=== PATIENT | female | born 1955 | race Caucasian/White ===

== ENCOUNTER 2019-04-30 11:50 | Emergency (ER) | payer SELFPAY ==
[~2019-04-30] VITALS: Ht 172.7 cm; Wt 59.0 kg
--- OUTSIDE RECORDS SUMMARY | 2019-04-30 11:53 | XMS REPORT | Clinical Summary ---
Author Author [facility] Organization [facility] Address Unknown Phone Unavailable Care Team Providers Care Portal Developer Name Role Phone Marguerite islas MD PCP Allergies Comments Active Allergy Reactions Severity Noted Date Shellfish Derived 03/12/2019 Medications End Date Status Medication Sig Dispensed Refills Start Date Active albuterol (PROAIR Inhale 2 0 HFA,PROVENTIL puffs 2 (two) HFA,VENTOLIN HFA) 90 times a day. mcg/actuation inhalerIndications: bronchospasm prevention Active cetirizine (ZyrTEC) 10 MG Take 10 mg by 0 tabletIndications: mouth as allergic rhinitis needed for allergies. Active clonAZEPAM (KlonoPIN) 1 Take 1 mg by 0 MG tabletIndications: mouth 2 (two) anxiety times a day as needed Indications: anxiety. Active DULoxetine (CYMBALTA) 60 Take 60 mg by 0 MG capsuleIndications: mouth daily. Anxiety with Depression Active gabapentin (NEURONTIN) Take 600 mg 0 600 mg tabletIndications: by mouth 3 Neuropathic Pain (three) times a day Indications: Neuropathic Pain. Active hyoscyamine (LEVSIN) Take 0.125 mg 0 0.125 mg SL by mouth tabletIndications: every 6 (six) irritable bowel syndrome hours as needed for cramping (3 to 4 times daily). Active metoprolol tartrate Take 25 mg by 0 (LOPRESSOR) 25 mg mouth 2 (two) tabletIndications: times a day. hypertension Active pantoprazole (PROTONIX) Take 40 mg by 0 40 MG EC mouth daily. tabletIndications: gastroesophageal reflux disease Active prazosin (MINIPRESS) 2 MG Take 4 mg by 0 capsuleIndications: mouth Nightmares nightly. Active traZODone (DESYREL) 100 Take 100 mg 0 MG tabletIndications: by mouth insomnia associated with nightly. depression Active fluticasone Inhale 1 puff 0 propion-salmeterol 2 (two) times (ADVAIR) 250-50 mcg/dose a day. DISKUS Active HYDROcodone-acetaminophen Take 1 tablet 0 (NORCO) 10-325 mg per by mouth tablet every 4 (four) hours as needed for moderate pain. 03/12/2019 Discontinued buprenorphine-naloxone Place 1 Film 0 (SUBOXONE) 8-2 mg under the filmIndications: opioid tongue 3 dependence (three) times a day. 03/12/2019 Discontinued mirtazapine (REMERON Take 30 mg by 0 KEKE-TAB) 30 MG mouth disintegrating nightly. tabletIndications: major depressive disorder 03/12/2019 Discontinued rivaroxaban (XARELTO) 20 Take 20 mg by 0 mg tabletIndications: mouth anticoagulation nightly. 04/14/2019 aspirin 325 MG tablet Take 1 tablet 30 tablet 0 (325 mg 9 total) by mouth daily for 30 days. 04/13/2019 atorvastatin (LIPITOR) 10 Take 1 tablet 30 tablet 0 MG tablet (10 mg total) 9 by mouth nightly for 30 days. Active Problems Problem Noted Date Chest pain with high risk of acute coronary syndrome 03/12/2019 Suicidal ideation 04/24/2018 MDD (major depressive disorder), recurrent episode, moderate 04/24/2018 Single current episode of major depressive disorder 04/24/2018 Acute angina 04/22/2018 Encounters Care Team Description Date Type Specialty Arely Carnes MD Cv left heart cath [70723 (CPT)] 03/14/2019 Surgery Procedural Cardiology Jack Zaman MD Korimilli, Vijay, MD Chest pain with high risk of acute coronary syndrome (Primary Dx); Tachycardia; Accelerated hypertension; Left lower quadrant pain 03/12/2019 Emergency General Internal Medicine - 03/14/2019 03/12/2019 Travel Aaron Ovalles, PhD 05/12/2018 Telephone Home Health Services Aaron Ovalles, PhD 05/10/2018 Telephone Home Health Services after 04/29/2018 Family History Medical History Relation Name Comments Bipolar disorder Daughter Bipolar disorder Mother Relation Name Status Comments Daughter Mother Social History Date Tobacco Use Types Packs/Day Years Used Never Smoker Smokeless Tobacco: Never Used Drinks/Week oz/Week Comments Alcohol Use No Sex Assigned at Date Recorded Not on file Industry Job Start Date Occupation Not on file Not on file Not on file Travel End Travel History Travel Start No recent travel history available. Last Filed Vital Signs Reading Time Taken Comments Vital Sign 156/86 03/14/2019 7:23 PM CDT Blood Pressure 104 03/14/2019 7:23 PM CDT Pulse 35.9 C (96.6 F) 03/14/2019 7:23 PM CDT Temperature 18 03/14/2019 7:23 PM CDT Respiratory Rate 93% 03/14/2019 7:23 PM CDT Oxygen Saturation - - Inhaled Oxygen Concentration - - Weight 172.7 cm (5' 8") 03/12/2019 5:32 PM CDT Height - - Body Mass Index Plan of Treatment Health Maintenance Due Date Last Done Comments CERVICAL CANCER SCREENING 1977 BREAST CANCER SCREENING 2006 COLONOSCOPY SCREENING 2006 SHINGLES VACCINES (#1) 2006 INFLUENZA VACCINE 03/02/2019 Procedures Comments Procedure Name Priority Date/Time Associated Diagnosis CV LEFT HEART CATH Routine 03/14/2019 1:32 PM CDT ECG 12-LEAD Routine 03/14/2019 11:25 AM CDT PROTHROMBIN TIME WITH INR Routine 03/14/2019 4:10 AM CDT TYPE AND SCREEN Routine 03/14/2019 4:10 AM CDT ESTIMATED GFR Routine 03/14/2019 4:10 AM CDT BASIC METABOLIC PANEL Routine 03/14/2019 4:10 AM CDT CBC HEMOGRAM Routine 03/14/2019 4:10 AM CDT ECHOCARDIOGRAM 2D Routine 03/13/2019 COMPLETE W MMODE SPECTRAL 12:13 PM CDT COLOR DOPPLER (02165) NM MYOCARDIAL PERFUSION Routine 03/13/2019 REST STRESS 1 DAY 11:41 AM CDT CV STRESS TEST NUCLEAR Routine 03/13/2019 CARDIO 11:41 AM CDT ECG 12-LEAD STAT 03/13/2019 4:28 AM CDT ESTIMATED GFR Timed 03/13/2019 3:00 AM CDT THYROID STIMULATING Timed 03/13/2019 HORMONE 3:00 AM CDT HEMOGLOBIN A1C Timed 03/13/2019 3:00 AM CDT BASIC METABOLIC PANEL Timed 03/13/2019 3:00 AM CDT HC COMPLETE BLD COUNT Timed 03/13/2019 W/AUTO DIFF 3:00 AM CDT TROPONIN Timed 03/13/2019 3:00 AM CDT ECG 12-LEAD Routine 03/13/2019 12:11 AM CDT TROPONIN Timed 03/12/2019 9:50 PM CDT GRAM STAIN STAT 03/12/2019 7:09 PM CDT URINE CULTURE STAT 03/12/2019 7:[address] ANGIOGRAM PE CHEST STAT 03/12/2019 6:[address] ABDOMEN PELVIS W STAT 03/12/2019 CONTRAST 6:57 PM CDT URINALYSIS SCREEN AND STAT 03/12/2019 MICROSCOPY, WITH REFLEX 6:55 PM CDT TO CULTURE XR CHEST 1 VW PORTABLE STAT 03/12/2019 5:48 PM CDT ESTIMATED GFR STAT 03/12/2019 5:40 PM CDT LIPASE LEVEL STAT 03/12/2019 5:40 PM CDT PARTIAL THROMBOPLASTIN STAT 03/12/2019 TIME (PTT) 5:40 PM CDT PROTHROMBIN TIME WITH INR STAT 03/12/2019 5:40 PM CDT B NATRIURETIC PEPTIDE STAT 03/12/2019 5:40 PM CDT TROPONIN STAT 03/12/2019 5:40 PM CDT CREATINE KINASE, TOTAL STAT 03/12/2019 (CPK) 5:40 PM CDT COMPREHENSIVE METABOLIC STAT 03/12/2019 PANEL 5:40 PM CDT HC COMPLETE BLD COUNT STAT 03/12/2019 W/AUTO DIFF 5:40 PM CDT ECG ED PRELIMINARY Routine 03/12/2019 INTERPRETATION 5:32 PM CDT ECG 12-LEAD STAT 03/12/2019 5:23 PM CDT after 04/29/2018 Results * 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 [facility] 2.90 % stenosis ofLeft anterior descending coronary artery 5.End-diastolic pressure elevated at 12mmHg consistent with underlying diastolic dysfunction, most likely secondary to underlying hypertensive heart disease. RECOMMENDATIONS: Medical therapy Continue with cardiac risk factor modification. Narrative Performed At [employer] [facility] Rubia Melendez [id number] 03/14/19 PROCEDURE: Left heart catheterization, selective coronary angiography and ventriculography INDICATION FOR PROCEDURE: Angina PROCEDURE DETAILS : The standard technique was employed. Sterile conditions were maintained throughout the procedure. The right groin was prepared and draped in the usual sterile fashion.The remained patient hemodynamically remained stable.The seldinger technique was used to access right common femoral artery with no complications. Conscious sedation was performed with Midazolam andFentanyl.Subcutaneous lidocaine was used for local anesthesia. Selective cine coronary arteriography was then performed in the standard left and right oblique projections using manual injection of contrast. A 5-Lithuanian system was used throughout the procedure. A FL4 catheter was placed in the ostium of the left main for angiography of the left main, left anterior descending artery, circumflex, andobtuse marginal coronary arteries. FR4 catheter was placed in the ostium of the right coronary artery for angiography of the right coronary artery. A 5-Lithuanian pigtail catheter was passed across the aortic valve and placed the left ventricular cavity for assessment of left ventricular systolic and diastolic pressure as well as left ventriculography. Left ventriculogram was performed in right anterior oblique projection. Left ventricular and aortic pressures were then recorded during pullback of the catheter from the left ventricle into the ascending aorta. FINDINGS : Left main is normal. 90 % stenosis ofLeft anterior descending coronary artery l. The circumflex and obtuse marginal coronary arteries had some mild luminal irregularities. The right coronary artery is dominant, and had some mild luminal irregularities. Left ventriculogram demonstrated normal systolic function, normal wall motion. Left ventricular end-diastolic pressure was measured at 12 mmHg. Performing Organization Address [facility] [[email or web address] Phone Number [employer] [address] [place] [address] * ECG 12 lead (03/14/2019 11:25 AM CDT) Only the most recent of 4 results within the time period is included. Ventricular 62 [facility] M[facility] rate Atrial rate 62 [facility] M[facility] SD interval 166 [facility] QRSD interval 96 [facility] QT interval 450 [facility] QTC interval 456 [facility] P axis 1 44 [facility] QRS axis 1 58 [facility] T wave axis 34 [facility] EKG impression Normal sinus rhythm-Normal [facility] ECG-In automated comparison with ECG of 13-MAR-2019 04:28,-No significant change was found- Specimen Narrative Performed At Performing Organization Address [facility] Phone Number [employer] [address] [place] [address] * Estimated GFR (03/14/2019 4:10 AM CDT) Only the most recent of 3 results within the time period is included. Estimated GFR 69 mL/min/1.73 m2 [facility] Comment: [facility] rpretation G1 >=90 Normal or high G2 60-89Mildly decreased [id number] Mildly to moderately decreased [id number] Moderately to severely decreased G4 15-29Severely decreased G5 <15Kidney failure The eGFR was calculated using the Chronic Kidney Disease Epidemiology Collaboration (CKD-EPI) equation. Interpretation is based on recommendations of the National Kidney Foundation-Kidney Disease Outcomes Quality Initiative (NKF-KDOQI) published in 2014. Specimen Plasma specimen Performing Organization Address City/[facility]/Zipcode Phone Number [facility] DEPARTMENT OF [address] [place] [address] PATHOLOGY AND [facility] MEDICINE [address] * Prothrombin time with INR (03/14/2019 4:10 AM CDT) Only the most recent of 2 results within the time period is included. Prothrombin 13.4 11.5 - 14.5 sec [facility] INR 1.1 [facility] Comment: [facility] International Normalized [facility] Ratio (INR) is a therapeutic monitoring tool for patients who are stable on oral anticoagulant therapy. An INR of 2.0-3.0 is suggested for deep vein thrombosis/pulmonary embolism. Specimen Blood Performing Organization Address [facility] [email or web address] Phone Number [facility] DEPARTMENT OF [address] [place] [address] PATHOLOGY AND [facility] MEDICINE [address] * CBC hemogram (03/14/2019 4:10 AM CDT) WBC 6.8 4.5 - 11.0 k/uL [facility] RBC 4.19 (L) 4.20 - 5.50 m/uL [facility] HGB 11.8 (L) 12.0 - 16.0 g/dL [facility] HCT 36.6 (L) 37.0 - 47.0 % [facility] MCV 87.4 82.0 - 100.[address] [facility] MCH 28.2 27.0 - 34.[address] [facility] MCHC 32.2 31.0 - 37.0 g/dL [facility] RDW - SD 42.5 37.0 - 55.[address] [facility] MPV 8.9 6.9 - 11.[address] [facility] Platelet count 242 150 - 400 K/uL [facility] Nucleated RBC 0.00 /[address] [facility] Specimen Blood Performing Organization Address City/State/Zipcode Phone Number [facility] DEPARTMENT [id number] [place] [address] PATHOLOGY AND GENOMIC MEDICINE [address] * Type and screen (03/14/2019 4:10 AM CDT) ABO grouping A [facility] Rh type POS [facility] Antibody screen NEG [facility] (gel) [facility] Specimen Blood Performing Organization Address City/[facility]/Zipcode Phone Number [facility] [place] [id number] [place] [address] PATHOLOGY AND GENOMIC MEDICINE [address] * Basic metabolic panel (03/14/2019 4:10 AM CDT) Only the most recent of 2 results within the time period is included. Sodium 135 135 - 148 mEq/L [facility] Potassium 3.6 3.5 - 5.0 mEq/L [facility] Chloride 102 98 - 112 mEq/L [facility] CO2 23 (L) 24 - 31 mEq/L [facility] Anion gap 10@ANIO 7 - 15 mEq/L [facility] BUN 9 8 - 23 mg/dL [facility] Creatinine 0.89 0.50 - 0.90 mg/dL [facility] Glucose 93 65 - 99 mg/dL [facility] Calcium 9.0 8.8 - 10.2 mg/dL [facility] Specimen Plasma specimen Performing Organization Address City/State/Zipcode Phone Number [facility] [place] [id number] [place] [address] PATHOLOGY AND GENOMIC MEDICINE [address] * Echocardiogram complete w contrast and 3D if needed (03/13/2019 12:13 PM CDT) AoV Area, Vmax 2.70 cm2 [facility] AoV Area, VTI 3.39 cm2 [facility] AoV Mean PG 3.00 mmHg [facility] AoV Peak PG 5.95 mmHg [facility] AoV Vmax 1.22 m/s [facility] AoV VTI 0.25 m [facility] IVS,d 0.94 cm [facility] IVS/LVPW,2D 1.00 [facility] Left Atrium 4.60 cm [facility] Dimension Anterior LV,d 4.96 cm [facility] LV EF,2D 84.23 % [facility] LV,s 2.68 cm [facility] LVOT area 3.80 cm2 [facility] LVOT Diam,S 2.20 cm [facility] LVOT Vmax 0.87 m/s [facility] LVOT VTI 0.22 m [facility] LVPWD,d 0.94 cm [facility] PV Pk Grad 3.49 mmHg [facility] PV VMAX 0.93 m/s [facility] RVOT Vmax 0.77 m/s [facility] RVSP (TR) 34.67 mmHg [facility] TR Vpeak 2.64 mm/s [facility] MV E A ratio 0.67 [facility] RA pressure 10.00 mmHg [facility] TR pk grad 24.67 mmHg [facility] MR Vmax 4.16 m/s [facility] MR peak grad 59.60 mmHg [facility] E wave 180.00 msec [facility] decelartion time MV Peak A Renato 1.21 m/s [facility] MV valve area p 4.21 cm2 [facility] 1/2 method MV Peak E Renato 0.82 m/s [facility] MV stenosis 52.20 ms [facility] pressure 1/2 time AV LVOT peak 2.99 mmHg [facility] gradient RVSP 34.67 mmHg [facility] Ao Root,d,2D 2.80 cm [facility] LV SYS VOL 26.52 ml [facility] LV SANDERS VOL 116.06 ml [facility] LV SV Teich 2D 89.53 ml [facility] LV Vol s Teich 26.52 ml [facility] PSAX RVOT pk grad 2.39 mmHg [facility] AoV Vmn 0.86 [facility] LV FS Teich 2D 45.97 [facility] MV AE ratio 1.48 [facility] LV FS Cube 2D 45.97 [facility] LVOT Vmn 0.64 [facility] PA Sanders Press 13.00 [facility] SD End Sanders 3.00 [facility] Grad SD End Diat Renato 0.87 [facility] Aov area Vmn 2.83 cm2 [facility] LVOT mean grad 2.00 mmHg [facility] MAX Pred HR 157.02 [facility] 85 of MPHR 133.47 [facility] Ao d LA s ratio 0.61 [facility] Calc MPHR 157.02 bpm [facility] LV SV Cube 2D 102.78 ml [facility] LV vol d cube 122.02 ml [facility] 2D LV vol s cube 19.25 ml [facility] 2D MV Decel slope 4.54 m/s2 [facility] Pred Exer Dur 7.58 [facility] R1 Pred METS R1 6.51 [facility] Velocity Ratio 0.71 m/s [facility] (V1/V2) EF 77.15 % [facility] E/A ratio 0.68 [facility] Specimen Narrative Performed At [facility] The left ventricular chamber size is normal. Left ventricular systolic function is normal. Left Ventricular ejection fraction is 60 - 65%. Normal left ventricular wall thickness and regional wall motion Right Atrium: The right atrium is normal. IVC/SVC: Mitral Valve: Mild mitral valve regurgitation. Tricuspid Valve: Mild tricuspid valve regurgitation Performing Organization Address [facility] Phone Number [employer] [address] [place] [address] * Cv stress test (03/13/2019 11:41 AM CDT) Resting HR 70 H MUSE Resting BP 163 [facility] MUSE Peak MET 1.0 H MUSE Achieved Protocol Name Regmosesoson [facility] MUSE Time in 00:01:00 [facility] MUSE Exercise Phase Max Systolic BP 165 [facility] MUSE Max Diastolic 95 [facility] MUSE BP Max Heart Rate 100 H MUSE Max Predicted 158 [facility] MUSE Heart Rate Target HR (220 - Age)*85% [facility] MUSE Formula Test Indication Abnormal ECG [facility] MUSE Stress Test ---Waveform interpreted in [facility] MUSE Impression report associated with image study. No interpretation is provided as part of this Stress ECG report.---Electronically Signed By Arely Carnes MD ([id number]), assistant film editor Kamaljit Noble ([id number]) on 03/13/2019 10:51:38 AM Target HR 158.00 bpm [facility] MUSE Specimen Narrative Performed At Performing Organization Address [facility] Phone Number [employer] [address] [place] [address] * Nm myocardial perfusion (03/13/2019 11:41 AM CDT) Target HR 158.00 bpm [facility] Resting HR 70 BPM [facility] Resting BP 163/90 mmHg [facility] Post Peak HR 100 bpm [facility] Percent HR 63.29 % [facility] Post Peak BP 165/95 mmHg [facility] Specimen Narrative Performed At [facility] 1.Normal coronary perfusion. 2.Normal left ventricular systolic function with normal left ventricular wall motion. 3.Left ventricular ejection fraction is over 70% based on gated stress images. 4.Chest pain associated with borderline ST/T changes associated with chest pain with Lexiscan stress. Performing Organization Address City/State/Zipcode Phone Number [employer] [address] [place] [address] * Troponin (03/13/2019 3:00 AM CDT) Only the most recent of 3 results within the time period is included. [facility] Troponin <0.006 0.000 - 0.040 ng/mL [facility] Comment: [facility] changed methodology effective: 12/06/2018 at 10:00 am The new method has a 99th percentile cutoff of 0.040 ng/mL Specimen Plasma specimen Performing Organization Address City/State/Zipcode Phone Number [facility] [place] [address] [place] [address] PATHOLOGY AND GENOMIC MEDICINE [address] * CBC with platelet and differential (03/13/2019 3:00 AM CDT) Only the most recent of 2 results within the time period is included. [facility] WBC 7.7 4.5 - 11.0 k/uL [facility] RBC 4.21 4.20 - 5.50 m/uL [facility] HGB 12.0 12.0 - 16.0 g/dL [facility] HCT 37.0 37.0 - 47.0 % [facility] MCV 87.9 82.0 - 100.[address] [facility] MCH 28.5 27.0 - 34.[address] [facility] MCHC 32.4 31.0 - 37.0 g/dL [facility] RDW - SD 42.8 37.0 - 55.[address] [facility] MPV 8.9 6.9 - 11.[address] [facility] Platelet count 252 150 - 400 K/uL [facility] Nucleated RBC 0.00 /[address] [facility] Neutrophils 66.6 39.0 - 69.0 % [facility] Lymphocytes 22.9 (L) 25.0 - 45.0 % [facility] Monocytes 7.7 0.0 - 10.0 % [facility] Eosinophils 1.6 0.0 - 5.0 % [facility] Basophils 0.8 0.0 - 1.0 % [facility] Immature 0.4 0.0 - 1.0 % [facility] granulocytes [facility] Specimen Blood Performing Organization Address City/State/[place] [address] PATHOLOGY AND GENOMIC MEDICINE [address] * Thyroid stimulating hormone (03/13/2019 3:00 AM CDT) TSH 0.61 0.27 - 4.20 uIU/mL [facility] Specimen Plasma specimen Performing Organization Address City/[facility] [email or web address] [address] PATHOLOGY AND GENOMIC MEDICINE [address] * Hemoglobin A1c (03/13/2019 3:00 AM CDT) Hemoglobin A1C 5.5 4.0 - 5.6 % [facility] Comment: [facility] HbA1c cutoffs for diagnosing [facility] diabetes: 4.0% - 5.6%=normal 5.7% - 6.4%=increased risk for diabetes (prediabetes) >=6.5%=diabetes Goals for glycemic control (ADA 2016) < 7.0%Target for non adults with diabetes. More or less stringent targets may be appropriate for individual patients. <7.5% Target for Children and adolescents with type 1 diabetes. Specimen Blood Performing Organization Address City/State/Zipcode Phone Number [facility] DEPARTMENT [address] [place] [address] PATHOLOGY AND GENOMIC MEDICINE [facility]Y [facility] [employer] [address] [place] [address] [facility] * Gram stain (03/12/2019 7:09 PM CDT) Gram stain No WBC's or organisms seen. [facility] result Comment: [facility] Specimen Information HOSPITAL Specimen Source: Urine Specimen Site: Clean catch Specimen Urine Performing Organization Address City/[facility]/Zipcode Phone Number [facility] DEPARTMENT OF [address] [place] [address] PATHOLOGY AND [facility] MEDICINE [facility] [address] [place] [id number] HOSPITAL * Urine culture (03/12/2019 7:09 PM CDT) Urine culture Mixed sonu 10-4 col/cc [facility] isolate Comment: [facility] Specimen Information HOSPITAL Specimen Source: Urine Specimen Site: Clean catch Specimen Urine Performing Organization Address City/[facility] [email or web address] Phone Number [facility] DEPARTMENT OF [address] [place] [address] PATHOLOGY AND [facility] MEDICINE [facility] [address] [place] [address] HOSPITAL * CT Angiogram Pe Chest (03/12/2019 6:57 PM CDT) Specimen Narrative Performed At [facility] CHEST CLINICAL HISTORY: Chest pain dyspnea - Possible Pulmonary Embolismhx of PEnot on anticoagulationhx of LAD stent TECHNIQUE: CT angiographic images of the chest were obtained during intravenous administration of iodinated contrast. Computerized reformatted images and 3-D MIP images were also obtained and archived (CT pulmonary embolus protocol). CT imaging was performed with iterative reconstruction techniques and/or automated exposure control to reduce radiation dose. COMPARISON: March 12, 2019 chest x-ray FINDINGS: 1.The pulmonary arteries are adequately opacified and there are no filling defects identified to suggest acute pulmonary embolus. 2.The thoracic aorta is of normal caliber. There is extensive atherosclerotic calcification the aorta and coronary vessels. 3.No pleural or pericardial effusions. 4.No pulmonary infiltrates or nodules. 5.Limited scans through the upper abdomen do not demonstrate a focal abnormality. 6.Images reviewed with bone window settings demonstrate moderate wedging of one of the mid thoracic vertebral bodies of uncertain acuity. IMPRESSION: No evidence of acute pulmonary embolus or other acute pulmonary finding. Moderate wedging one of the mid thoracic vertebral bodies of uncertain acuity. [id number] Procedure Note Interface, Radiology Results Incoming - 03/12/2019 7:04 PM CDT EXAMINATION: CT ANGIOGRAM PE CHEST CLINICAL HISTORY: Chest pain dyspnea - Possible Pulmonary Embolism hx of PE not on anticoagulation hx of LAD stent TECHNIQUE: CT angiographic images of the chest were obtained during intravenous administration of iodinated contrast. Computerized reformatted images and 3-D MIP images were also obtained and archived (CT pulmonary embolus protocol). CT imaging was performed with iterative reconstruction techniques and/or automated exposure control to reduce radiation dose. COMPARISON: March 12, 2019 chest x-ray FINDINGS: 1. The pulmonary arteries are adequately opacified and there are no filling defects identified to suggest acute pulmonary embolus. 2. The thoracic aorta is of normal caliber. There is extensive atherosclerotic calcification the aorta and coronary vessels. 3. No pleural or pericardial effusions. 4. No pulmonary infiltrates or nodules. 5. Limited scans through the upper abdomen do not demonstrate a focal abnormality. 6. Images reviewed with bone window settings demonstrate moderate wedging of one of the mid thoracic vertebral bodies of uncertain acuity. IMPRESSION: No evidence of acute pulmonary embolus or other acute pulmonary finding. Moderate wedging one of the mid thoracic vertebral bodies of uncertain acuity. [id number] Performing Organization Address City/State/Zipcode Phone Number [facility] [address] [place] [address] * CT Abdomen Pelvis W Contrast (03/12/2019 6:57 PM CDT) Specimen Narrative Performed At Examination: CT ABDOMEN PELVIS W CONTRAST [facility] Clinical history: IV contrast onlyAbdominal PainLLQhx of colitis Comparison: November 24, 2010 Technique: Multiple computerized axial tomographic images were obtained of the abdomen and pelvis following administration of IV contrast.Sagittal and coronal computerized reformatted images were also obtained.Enteric contrast was not administered per ordering clinician request. CT scans are performed using radiation dose reduction techniques.Technical factors are evaluated and adjusted to ensure appropriate moderation of exposure.Automated dose management technology is applied to adjust radiation exposure while achieving a diagnostic quality image. IMPRESSION: Minimal atelectasis is present within the lung bases. Calcified atherosclerotic coronary arterial plaque is present. Abdomen: 1. The liver, spleen, adrenal glands, pancreas, and kidneys are unremarkable. 2. The pancreatic and biliary ducts are not dilated. The abdominal aorta is normal caliber. 3.The bowel is not dilated. Mild diverticulosis is present throughout the colon. 4.There is no significant abdominal wall defect, hernia, or abscess. Pelvis: 1.Hysterectomy. The bladder appears normal. 2.There is no acute osseous pathology. CONCLUSION: 1. MILD DIVERTICULOSIS. 2. HYSTERECTOMY. 3. OTHERWISE ABOVE. [id number] Procedure Note Interface, Radiology Results Incoming - 03/12/2019 7:10 PM CDT Examination: CT ABDOMEN PELVIS W CONTRAST Clinical history: IV contrast only Abdominal Pain LLQ hx of colitis Comparison: November 24, 2010 Technique: Multiple computerized axial tomographic images were obtained of the abdomen and pelvis following administration of IV contrast.Sagittal and coronal computerized reformatted images were also obtained. Enteric contrast was not administered per ordering clinician request. CT scans are performed using radiation dose reduction techniques. Technical factors are evaluated and adjusted to ensure appropriate moderation of exposure. Automated dose management technology is applied to adjust radiation exposure while achieving a diagnostic quality image. IMPRESSION: Minimal atelectasis is present within the lung bases. Calcified atherosclerotic coronary arterial plaque is present. Abdomen: 1. The liver, spleen, adrenal glands, pancreas, and kidneys are unremarkable. 2. The pancreatic and biliary ducts are not dilated. The abdominal aorta is normal caliber. 3. The bowel is not dilated. Mild diverticulosis is present throughout the colon. 4. There is no significant abdominal wall defect, hernia, or abscess. Pelvis: 1. Hysterectomy. The bladder appears normal. 2. There is no acute osseous pathology. CONCLUSION: 1. MILD DIVERTICULOSIS. 2. HYSTERECTOMY. 3. OTHERWISE ABOVE. [facility]-[id number] Performing Organization Address City/State/Zipcode Phone Number [facility] [address] [place] [address] * Urinalysis screen and microscopy, with reflex to culture (03/12/2019 6:55 PM CDT) Specimen site Clean catch [facility] Color, UA Straw [facility] Appearance, UA Clear [facility] Specific 1.016 1.001 - 1.030 [facility] gravity, [facility] pH, UA 7.0 5.0 - 9.0 [facility] Protein, UA Negative Negative [facility] Glucose, UA Negative Negative [facility] Ketones, UA Negative Negative [facility] Bilirubin, UA Negative Negative [facility] Blood, UA Negative Negative [facility] Nitrite, UA Negative Negative [facility] Urobilinogen, <2.0 <2.0 E.U./dL [facility] Leukocyte Small (A) Negative [facility] esterase, UA [facility] Epithelial 6 /HPF [facility] cells, UA [facility] WBC, UA 2 0 - 4 /HPF [facility] RBC, UA 2 0 - 5 /HPF [facility] Bacteria, UA Few None seen [facility] Yeast, UA None seen [facility] Yeast with None seen [facility] Specimen Urine Performing Organization Address City/State/Zipcode Phone Number [facility] [place] [address] [place] [address] PATHOLOGY AND GENOMIC MEDICINE [facility] [address] * XR Chest 1 Vw Portable (03/12/2019 5:48 PM CDT) Specimen Narrative Performed At EXAMINATION:XR CHEST 1 VW PORTABLE [facility] CLINICAL HISTORY:Chest pain dyspnea COMPARISON:None IMPRESSION: 1. The heart and pulmonary vasculature are within normal limits. 2. No infiltrate or effusion is demonstrated. 3. There is no acute osseous pathology.There are several old posterior right rib fractures. CONCLUSION: NO RADIOGRAPHIC EVIDENCE OF ACUTE CARDIOPULMONARY ABNORMALITY. [facility]-[id number] Procedure Note Hm Interface, Radiology Results Incoming - 03/12/2019 5:53 PM CDT EXAMINATION: XR CHEST 1 VW PORTABLE CLINICAL HISTORY: Chest pain dyspnea COMPARISON: None IMPRESSION: 1. The heart and pulmonary vasculature are within normal limits. 2. No infiltrate or effusion is demonstrated. 3. There is no acute osseous pathology. There are several old posterior right rib fractures. CONCLUSION: NO RADIOGRAPHIC EVIDENCE OF ACUTE CARDIOPULMONARY ABNORMALITY. [facility]-[id number] Performing Organization Address City/State/Zipcode Phone Number [facility] [address] [place] [address] * Partial thromboplastin time, activated (03/12/2019 5:40 PM CDT) PTT 27.1 23.0 - 36.0 sec [facility] Comment: [facility] PTT therapeutic range for [facility] unfractionated heparin is 61.0-112.0 seconds which corresponds to Anti-Xa 0.3-0.7 U/ml. Specimen Blood Performing Organization Address City/[facility]/Zipcode Phone Number [facility] [place] [address] PATHOLOGY AND [facility] MEDICINE [address] * B natriuretic peptide (03/12/2019 5:40 PM CDT) BNP 26 0 - 100 pg/mL [facility] Specimen Blood Performing Organization Address City/[facility] [email or web address] Phone Number [facility] [place] [address] PATHOLOGY AND GENOMIC MEDICINE [address] * Lipase level (03/12/2019 5:40 PM CDT) Lipase 22 13 - 60 U/L [facility] Specimen Plasma specimen Performing Organization Address City/[facility] [email or web address] Phone Number [facility] [place] [address] PATHOLOGY AND GENOMIC MEDICINE [address] * Creatine kinase, total (CPK) (03/12/2019 5:40 PM CDT) Creatine kinase 28 26 - 192 U/L [facility] Specimen Plasma specimen Performing Organization Address [facility] [email or web address] Phone Number [facility] [place] [address] PATHOLOGY AND [facility] MEDICINE [address] * Comprehensive metabolic panel (03/12/2019 5:40 PM CDT) Sodium 136 135 - 148 mEq/L [facility] Potassium 3.6 3.5 - 5.0 mEq/L [facility] Chloride 100 98 - 112 mEq/L [facility] CO2 22 (L) 24 - 31 mEq/L [facility] Anion gap 14@ANIO 7 - 15 mEq/L [facility] BUN 8 8 - 23 mg/dL [facility] Creatinine 0.86 0.50 - 0.90 mg/dL [facility] Glucose 122 (H) 65 - 99 mg/dL [facility] Calcium 9.8 8.8 - 10.2 mg/dL [facility] Protein 7.3 6.3 - 8.3 g/dL [facility] Albumin 4.2 3.5 - 5.0 g/dL [facility] A/G ratio 1.4 0.7 - 3.8 [facility] Alkaline 112 (H) 35 - 104 U/L [facility] phosphatase [facility] AST 14 10 - 35 U/L [facility] ALT 9 5 - 50 U/L [facility] Total bilirubin 0.5 0.2 - 1.2 mg/dL [facility] Specimen Plasma specimen Performing Organization Address City/State/Zipcode Phone Number [facility] [place] [address] [place] [address] PATHOLOGY AND GENOMIC MEDICINE [facility] [id number] [place] [address] * ECG ED Preliminary Interpretation - Not an Order (03/12/2019 5:32 PM CDT) Narrative Performed At Jack Zaman MD 03/13/20192:11 AM ECG ED Preliminary Interpretation - Not an Order Performed by: Jack Zaman MD Authorized by: Jack Zaman MD ECG reviewed by ED Physician in the absence of a canal tender: yes Interpretation: Interpretation: abnormal Rate: ECG rate:131 ECG rate assessment: tachycardic Rhythm: Rhythm: sinus tachycardia Ectopy: Ectopy: none QRS: QRS axis:Normal QRS intervals:Normal ST segments: ST segments:Non-specific T waves: T waves: non-specific after 04/29/2018 Advance Directives For more information, please contact: [phone] 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
--- OUTSIDE RECORDS SUMMARY | 2019-04-30 11:54 | XMS REPORT ---
Author Author [facility] Address Unknown Phone Unavailable Care Team Providers Care Field Organizer Name Role Phone Unavailable Unavailable Payers Payer Name Policy Type Policy Number Effective Date Expiration Date Problems This patient has no known problems. Allergies, Adverse Reactions, Alerts Allergy Name Allergy Type Status Severity Reaction(s) Onset Date Inactive Date Treating Clinician Comments Shellfish DA Active 2018-12-14 00:00:00 Shellfish DA Active [employer] 2017-09-29 00:00:00 Medications This patient has no known medications. Results Test Description Test Time Test Comments Text Results Atomic Results Result Comments GLUCOSE BEDSIDE TESTING 2019-03-20 11:50:00 GLUCOSE BEDSIDE TESTING (test code=GLUBED) 87 mg/dL 70-110 UA RFLX MICR CULT IF [id number] 09:58:00* Test Item Value Reference Range Comments UA COLOR (test code=COLU) YELLOW discript YEL/STRAW UA APPEARANCE (test code=APPU) CLEAR discript CLEAR UA GLUCOSE DIPSTICK (test code=DGLUU) NEGATIVE mg/dL NEG UA BILIRUBIN DIPSTICK (test code=BILU) NEGATIVE mg/dL NEG UA KETONE DIPSTICK (test code=KETU) NEGATIVE mg/dL NEG UA SPECIFIC GRAVITY (test code=SGU) 1.010 SG 1.005-1.030 UA BLOOD DIPSTICK (test code=OLIVA) NEGATIVE mg/DL NEG UA PH DIPSTICK (test code=CAREN) 6.5 pH UNITS 5.0-7.0 UA PROTEIN DIPSTICK (test code=PROU) NEGATIVE mg/dL NEG UA UROBILINIOGEN DIPSTICK (test code=URO) 0.2 mg/dL <2.0 UA NITRITE DIPSTICK (test code=WAN) NEGATIVE SCREEN NEG UA LEUKOCYTE ESTERASE DIPSTICK (test code=LEUU) NEGATIVE Leuk/mcL NEGATIVE UA CULTURE NEEDED? (test code=UACULT) Criteria Culture CHK SOURCE OF URINE: CLEAN CATCHIndication for culture: Sev. Sepsis-no other src UA RFLX MICR CULT IF [id number] 09:58:00* Test Item Value Reference Range Comments UA COLOR (test code=COLU) YELLOW discript YEL/STRAW UA APPEARANCE (test code=APPU) CLEAR discript CLEAR UA GLUCOSE DIPSTICK (test code=DGLUU) NEGATIVE mg/dL NEG UA BILIRUBIN DIPSTICK (test code=BILU) NEGATIVE mg/dL NEG UA KETONE DIPSTICK (test code=KETU) NEGATIVE mg/dL NEG UA SPECIFIC GRAVITY (test code=SGU) 1.010 SG 1.005-1.030 UA BLOOD DIPSTICK (test code=OLIVA) NEGATIVE mg/DL NEG UA PH DIPSTICK (test code=CAREN) 6.5 pH UNITS 5.0-7.0 UA PROTEIN DIPSTICK (test code=PROU) NEGATIVE mg/dL NEG UA UROBILINIOGEN DIPSTICK (test code=URO) 0.2 mg/dL <2.0 UA NITRITE DIPSTICK (test code=WAN) NEGATIVE SCREEN NEG UA LEUKOCYTE ESTERASE DIPSTICK (test code=LEUU) NEGATIVE Leuk/mcL NEGATIVE UA CULTURE NEEDED? (test code=UACULT) NO, WBC<10 Criteria Culture CHK SOURCE OF URINE: CLEAN CATCHIndication for culture: Sev. Sepsis-no other src GLUCOSE BEDSIDE [id number] 07:54:00* Test Item Value Reference Range Comments GLUCOSE BEDSIDE TESTING (test code=GLUBED) 79 mg/dL 70-110 CBC W/AUTO [id number] 06:04:00* Test Item Value Reference Range Comments WHITE BLOOD CELL (test code=WBC) 6.6 K/mm3 3.5-11.0 RED BLOOD CELL (test code=RBC) 3.99 M/mm3 4.70-6.10 HEMOGLOBIN (test code=HGB) 11.8 G/DL 10.4-14.9 HEMATOCRIT (test code=HCT) 35.2 % 31.5-44.1 MEAN CELL VOLUME (test code=MCV) 88.2 Fl 84.5-98.6 MEAN CELL HGB (test code=MCH) 29.6 pg 27.0-34.2 MEAN CELL HGB CONCETRATION (test code=MCHC) 33.5 G/DL 31.5-34.0 RED CELL DISTRIBUTION WIDTH (test code=RDW) 13.9 SD 11.5-14.5 PLATELET COUNT (test code=PLT) 232.0 K/mm3 150-450 MEAN PLATELET VOLUME (test code=MPV) 9.30 fL 7.0-10.5 NEUTROPHIL % (test code=NT%) 58.3 % 40-76 LYMPHOCYTE % (test code=LY%) 27.3 % 20.5-51.1 MONOCYTE % (test code=MO%) 10.7 % 1.7-9.3 EOSINOPHIL % (test code=EO%) 2.9 % 0.0-6.0 BASOPHIL % (test code=BA%) 0.8 % 0.0-2.0 NEUTROPHIL # (test code=NT#) 3.83 K/mm3 1.8-7.6 LYMPHOCYTE # (test code=LY#) 1.8 K/mm3 0.6-3.2 MONOCYTE # (test code=MO#) 0.7 K/mm3 0.3-1.1 EOSINOPHIL # (test code=EO#) 0.2 K/mm3 0.0-0.4 BASOPHIL # (test code=BA#) 0.1 K/mm3 0.0-0.1 MANUAL DIFF REQUIRED (test code=MDIFF) NO DIFF/SCN CRITERIA BASIC METABOLIC [id number] 04:49:00* Test Item Value Reference Range Comments SODIUM (test code=NA) 142 mmol/L 134-147 POTASSIUM (test code=K) 3.9 mmol/L 3.4-5.0 CHLORIDE (test code=CL) 113 mmol/L 100-108 CARBON DIOXIDE (test code=CO2) 22 mmol/L 21-32 ANION GAP (test code=GAP) 7.0 GAP calc 4.0-15.0 GLUCOSE (test code=GLU) 96 MG/DL 70-110 BLOOD UREA NITROGEN (test code=BUN) 7 MG/DL 7-18 GLOMERULAR FILTRATION RATE (test code=GFR) >=60 max estimate estGFR >60 CREATININE (test code=CREAT) 0.8 MG/DL 0.6-1.0 CALCIUM (test code=CA) 8.3 MG/DL 8.5-10.1 LIPID PROFILE (CORONARY RISK)2019-03-20 04:49:00* Test Item Value Reference Range Comments TRIGLYCERIDES (test code=TRIG) 83 MG/DL 0-150 CHOLESTEROL (test code=CHOL) 156 MG/DL 133-200 CHOLESTEROL/HDL RATIO (test code=CHOLHDL) 3.00 RATIO >0 HDL CHOLESTEROL (test code=HDL) 52 MG/DL 40-59 NON-HDL CHOLESTEROL (test code=NHDL) 104 mg/dL <130 LIPOPROTEIN LDL (test code=LDL) 96 MG/DL 0-129 LDL/HDL (test code=LDL/HDL) 1.84 Ratio 1.48-3.22 Avg T4 [id number] 04:49:00* Test Item Value Reference Range Comments T4 FREE (test code=T4F) 0.88 NG/DL 0.89-1.76 THYROID STIMULATING [id number] 04:49:00* Test Item Value Reference Range Comments THYROID STIMULATING HORMONE (test code=TSH) 1.120 mcIU/ML 0.340-4.820 NT PRO-BRAIN NATRIURETIC [id number] 04:49:00* Test Item Value Reference Range Comments NT PRO-BRAIN NATRIURETIC PEPTI (test code=PROBNP) 119 PG/ML 0-100 GLYCOSYLATED HEMOGLOBIN [id number] 04:29:00* Test Item Value Reference Range Comments GLYCOSYLATED HEMOGLOBIN (HA1C) (test code=GLYHGB) 5.6 % A1C 4.2-6.3 ESTIMATED AVERAGE GLUCOSE (test code=EAG) 114 MG/DLest BASIC METABOLIC [id number] 04:29:00* Test Item Value Reference Range Comments SODIUM (test code=NA) 142 mmol/L 134-147 POTASSIUM (test code=K) 3.9 mmol/L 3.4-5.0 CHLORIDE (test code=CL) 113 mmol/L 100-108 CARBON DIOXIDE (test code=CO2) 22 mmol/L 21-32 ANION GAP (test code=GAP) 7.0 GAP calc 4.0-15.0 GLUCOSE (test code=GLU) 96 MG/DL 70-110 BLOOD UREA NITROGEN (test code=BUN) 7 MG/DL 7-18 GLOMERULAR FILTRATION RATE (test code=GFR) estGFR >60 CREATININE (test code=CREAT) MG/DL 0.6-1.0 CALCIUM (test code=CA) 8.3 MG/DL 8.5-10.1 LIPID PROFILE (CORONARY RISK)2019-03-20 04:29:00* Test Item Value Reference Range Comments TRIGLYCERIDES (test code=TRIG) MG/DL 0-150 CHOLESTEROL (test code=CHOL) MG/DL 133-200 CHOLESTEROL/HDL RATIO (test code=CHOLHDL) RATIO >0 HDL CHOLESTEROL (test code=HDL) MG/DL 40-59 NON-HDL CHOLESTEROL (test code=NHDL) mg/dL <130 LIPOPROTEIN LDL (test code=LDL) MG/DL 0-129 LDL/HDL (test code=LDL/HDL) Ratio 1.48-3.22 Avg T4 [id number] 04:29:00* Test Item Value Reference Range Comments T4 FREE (test code=T4F) NG/DL 0.89-1.76 THYROID STIMULATING [id number] 04:29:00* Test Item Value Reference Range Comments THYROID STIMULATING HORMONE (test code=TSH) mcIU/ML 0.340-4.820 NT PRO-BRAIN NATRIURETIC [id number] 04:29:00* Test Item Value Reference Range Comments NT PRO-BRAIN NATRIURETIC PEPTI (test code=PROBNP) PG/ML 0-100 [id number] 21:27:00* Test Item Value Reference Range Comments TROPONIN-I (test code=TROPI) < 0.015 NG/ML 0.000-0.045 Negative: </=0.045 Positive: >/=0.046 Correlation with serial results, other cardiac markers, and clinical findings is necessary to determine the clinical significance of this result. Quantitative results using different methodologies should not be compared to one another as numerical results may varyby method. Completed by Nursing: [id number] 18:10:00* Test Item Value Reference Range Comments TROPONIN-I (test code=TROPI) < 0.015 NG/ML 0.000-0.045 Negative: </=0.045 Positive: >/=0.046 Correlation with serial results, other cardiac markers, and clinical findings is necessary to determine the clinical significance of this result. Quantitative results using different methodologies should not be compared to one another as numerical results may varyby method. Completed by Nursing: NOLACTIC ACID [id number] 17:25:00* Test Item Value Reference Range Comments LACTIC ACID POC (test code=LACTP) 1.36 MMOL/L 0.90-1.70 - XR CHEST 2 [id number] 16:06:00 Name: CHELSEY MUÑIZ [facility] : 1955 Age/S: 63 / F [id number] [address] Unit #: [id number] Loc: [place] [address] Phys: Feliz Man MD Acct: [id number] Dis Date: Status: REG ER PHONE #: [phone] Exam Date: 03/19/2019 1557 FAX #: Reason: Suspected Sepsis EXAMS: CPT: [id number] XR CHEST 2 V 65016 Fluoro Time: DAP (Gy m2): Air Kerma (mGy): PA AND LATERAL CHEST: CLINICAL INFORMATION: Suspected Sepsis COMPARISONS: Chest radiograph dated May 17, 2017 FINDINGS: Lines and tubes: None Lungs and pleura: The lungs are well-expanded. No airspace consolidation is seen. The costophrenic angles are sharp. Heart and mediastinum: The cardiomediastinal silhouette and pulmonary vasculature are within normal limits. Bones and soft tissues: Multiple old right-sided rib fractures are noted. Orthopedic hardware is seen in the left proximal humerus. IMPRESSION: No acute abnormality LOCATION: A1 at 1606 Reported and signed by: Jose Lamas M.D. CC: Feliz Man MD; Jing Day [employer] PAGE 1 Signed Report Name: CHELSEY MUÑIZ [facility] : 1955 Age/S: 63 / F [address] [facility] Unit #: [id number] Loc: [place] [address] Phys: Feliz Man MD Acct: [id number] Dis Date: Status: REG ER PHONE #: [phone] Exam Date: 03/19/2019 1554 FAX #: Reason: Suspected Sepsis EXAMS: CPT: [id number] XR CHEST 2 V 42783 Fluoro Time: DAP (Gy m2): Air Kerma (mGy): <Continued> Technologist: Amado Brown, RT(R)(CT) Trnscb Norbert e/Time: 03/19/2019 (160) [email or web address] Orig Print D/T: S: (7187) PAGE 2 Signed Report - CT CHEST W/CONTRAST 2019-03-19 16:01:00 Name: CHELSEY MUÑIZ [facility] : 1955 Age/S: 63 / F [id number] [address] Unit #: [id number] Loc: [place] [address] Phys: Feliz Man MD Acct: [id number] Dis Date: Status: REG ER PHONE #: [phone] Exam Date: 03/19/2019 7394 FAX #: Reason: chest pain/SOB EXAMS: CPT: [id number] CT CHEST W/CONTRAST [address] CT CHEST with CONTRAST HISTORY: chest pain/SOB TECHNIQUE: Axial CT images were obtained through the chest with intravenous contrast and displayed in soft tissue and lung windows. Coronal and sagittal reformatted images were also created from the data set. One or more of the following dose reduction techniques were used: Automated exposure control, adjustment of the mA and/or kV according to patient size, and/or iterative reconstruction. COMPARISON: CTA chest 12/14/2018 FINDINGS: Moderate coronary artery calcifications. Bibasilar atelectasis. The lungs are clear. No pleural effusion or pneumothorax. There is no significant mediastinal or hilar adenopathy. The aorta and mediastinal structures show no other significant abnormalities. No acute osseous abnormalities. Postsurgical changes are noted at the left humerus. IMPRESSION: No significant chest abnormalities. CT OF THE ABDOMEN AND PELVIS WITH CONTRAST Location code:J9 CLINICAL HISTORY:chest pain/SOB C OMPARISON: CT abdomen pelvis 05/17/2017 TECHNIQUE:Multiple tr ansaxial images of the abdomen and pelvis were obtained before and after 100 mL of Isovue 300 contrast and oral contrast. Coronal reformatted i mages were obtained. PAGE 1 Signed Report (CONTINUED) Name: CHELSEY MUÑIZ [facility] Kehinde rm : 1955 Age/S: 63 / F [address] [address] Unit #: [id number] Loc: [place] [address] Phys: Feliz Man MD Acct: [id number] Dis Date: Status: REG ER PHONE #: [phone] Exam Date: 03/19/2019 1540 FAX #: Reason: chest pain/SOB EXAMS: CPT: [id number] CT CHEST W/CONTRAST 16634 < Continued> FINDINGS: Abdomen The visualized structures of the lower thorax are unremarkable. The liver, spleen, pancreas, gallbladder, adrenal glands, and both kidneys are within normal limits. No bowel obstruction. No mesenteric or retroperitoneal lymphadenopathy is found. There is no free intraperitoneal air or fluid. Visualized abdominal aorta is within normal limits. FINDINGS: Pelvis Prior hysterectomy. Visualized intra-pelvic contents are within normal limits. The urinary bladder is unremarkable. There is no free pelvic fluid. Visualized skeletal structures are within normal limits. IMPRESSION: No acute findings. at 1601 Reported and signed by: Karlos Hoyt M.D. CC: Feliz Man MD; Jing Day NP Technologist:RT Aayush(R) CTDI: DLP: Trnscb Date/Time: 03/19/2019 (1601) [email or web address] Orig Print D/T: S: 03/19/2019 (6947) PAGE 2 Signed Report - CT ABD PELVIS [id number] 16:01:00 Name: CHELSEY MUÑIZ [facility] : 1955 Age/S: 63 / F [address] [address] Unit #: [id number] Loc: [place] [address] Phys: Helen Man MD Acct: [id number] Di s Date: Status: REG ER PHONE #: Exam Date: 03/19/2019 1547 FAX #: Reason: LLQ pain EXAMS: CPT: [id number] CT ABD PELVIS W/CONT 74991 CT CHEST with CONTRAST HISTORY: chest pain/SOB TECHNIQUE: Axial CT images were obtained through the chest with intravenous contrast and displayed in soft tissue and lung windows. Coronal and sagittal reformatted images were also created from the data set. One or more of the following dose reduction techniques were used: Automated exposure control, adjustme nt of the mA and/or kV according to patient size, and/or iterative reconst ruction. COMPARISON: CTA chest 12/14/2018 FINDINGS: Moderate coronary artery calcifications. Bibasilar atelectasis. The lungs are clear. No pleural effusion or pneumothorax. There is no significant mediastinal or hilar adenopathy. The aorta and me diastinal structures show no other significant abnormalities. No acute osseous abnormalities. Postsurgical changes are noted at the left humerus. IMPRESSION: No significant chest abnormalities. CT OF THE ABDOMEN AND PELVIS WITH CONTRAST Location code:J9 CLINICAL HISTORY:chest pain/SOB C OMPARISON: CT abdomen pelvis 05/17/2017 TECHNIQUE:Multiple tr ansaxial images of the abdomen and pelvis were obtained before and after 100 mL of Isovue 300 contrast and oral contrast. Coronal reformatted i mages were obtained. PAGE 1 Signed Report (CONTINUED) Name: CHELSEY MUÑIZ [facility] P sujey : 1955 Age/S: 63 / F [address] [address] Unit #: [id number] Loc: [place] [address] Phys: Feliz Man MD Acct: [id number] Dis Date: Status: REG ER PHONE #: [phone] Exam Date: 03/19/2019 1540 FAX #: Reason: LLQ pain EXAMS: CPT: [id number] CT ABD PELVIS W/CONT 97132 < Continued> FINDINGS: Abdomen The visualized structures of the lower thorax are unremarkable. The liver, spleen, pancreas, gallbladder, adrenal glands, and both kidneys are within normal limits. No bowel obstruction. No mesenteric or retroperitoneal lymphadenopathy is found. There is no free intraperitoneal air or fluid. Visualized abdominal aorta is within normal limits. FINDINGS: Pelvis Prior hysterectomy. Visualized intra-pelvic contents are within normal limits. The urinary bladder is unremarkable. There is no free pelvic fluid. Visualized skeletal structures are within normal limits. IMPRESSION: No acute findings. at 1601 Reported and signed by: Karlos Hoyt M.D. CC: Feliz Man MD; Jing Day NP Technologist:RT Aayush(R) CTDI: DLP: Trnscb Date/Time: 03/19/2019 (1601) [email or web address] Orig Print D/T: S: 03/19/2019 (4410) PAGE 2 Signed Report COMPREHENSIVE METABOLIC [id number] 15:25:00* Test Item Value Reference Range Comments SODIUM (test code=NA) 138 mmol/L 134-147 POTASSIUM (test code=K) 3.0 mmol/L 3.4-5.0 CHLORIDE (test code=CL) 107 mmol/L 100-108 CARBON DIOXIDE (test code=CO2) 20 mmol/L 21-32 ANION GAP (test code=GAP) 11.0 GAP calc 4.0-15.0 GLUCOSE (test code=GLU) 151 MG/DL 70-110 BLOOD UREA NITROGEN (test code=BUN) 7 MG/DL 7-18 GLOMERULAR FILTRATION RATE (test code=GFR) 60 estGFR >60 CREATININE (test code=CREAT) 1.0 MG/DL 0.6-1.0 TOTAL PROTEIN (test code=PROT) 7.0 G/DL 6.4-8.2 ALBUMIN (test code=ALB) 3.5 G/DL 3.4-5.0 GLOBULIN (test code=GLOB) 3.5 GM/dL ALBUMIN/GLOBULIN RATIO (test code=A/G) 1.0 RATIO 1.2-2.2 CALCIUM (test code=CA) 9.0 MG/DL 8.5-10.1 BILIRUBIN TOTAL (test code=BILT) 0.40 MG/DL 0.2-1.2 SGOT/AST (test code=AST) 12 Unit/L 15-37 SGPT/ALT (test code=ALT) 15 Unit/L 12-78 ALKALINE PHOSPHATASE TOTAL (test code=ALKP) 99 Unit/L 45-117 CREATINE KINASE (CK)2019-03-19 15:25:00* Test Item Value Reference Range Comments CREATINE KINASE (CK) (test code=CK) 27 Unit/L 26-192 [id number] 15:25:00* Test Item Value Reference Range Comments LIPASE (test code=LIP) 119 Unit/L 114-286 RULE OUT ME [id number] 15:25:00* Test Item Value Reference Range Comments CREATINE KINASE (CK) (test code=CK) 28 Unit/L 26-192 TROPONIN-I (test code=TROPI) < 0.015 NG/ML 0.000-0.045 Negative: </=0.045 Positive: >/=0.046 Correlation with serial results, other cardiac markers, and clinical findings is necessary to determine the clinical significance of this result. Quantitative results using different methodologies should not be compared to one another as numerical results may varyby method. - XR ANKLE 3+V [id number] 15:12:00 Name: CHELSEY MUÑIZ [facility] : 1955 Age/S: 63 / F [address] [facility] Unit #: [id number] Loc: [place] [address] Phys: Feliz Man MD Acct: [id number] Dis Date: Status: REG ER PHONE #: [phone] Exam Date: 03/19/2019 1440 FAX #: Reason: fall EXAMS: CPT: [id number] XR ANKLE 3+[place] [address] Fluoro Time: DAP (Gy m2): Air Kerma (mGy): - XR FOOT 3+V RT, - XR ANKLE 3+V RT CLINICAL INFORMATION: fall COMPARISONS: None available. FINDINGS: AP, lateral, and oblique images of the right foot and ankle were submitted. There is a nondisplaced fracture through the mid diaphysis of the 5th metatarsal. Mild soft tissue swelling is noted. The remaining bones of the foot and ankle are intact. The ankle mortise is normal. IMPRESSION: Nondisplaced fracture through the mid diaphysis of the 5th metatarsal. Location: A1 at 1512 Reported and signed by: Jose Lamas M.D. CC: Feliz Man MD; Jing Day [employer] PAGE 1 Signed Report Name: CHELSEY MUÑIZ [facility] : 1955 Age/S: 63 / F [address] [facility] Unit #: [id number] Loc: [place] [address] Phys: Feliz Man MD Acct: [id number] Dis Date: Status: REG ER PHONE #: [phone] Exam Date: 03/19/2019 1440 FAX #: Reason: fall EXAMS: CPT: [id number] XR ANKLE 3+V [place] [address] Fluoro Time: DAP (Gy m2): Air Kerma (mGy): <Continued> Technologist: VIDYA DOMINGUEZ, RT(R)(CT)(MR) Trnscb Date/Time: 03/19/2019 (1512) [email or web address] Orig Print D/T: S: 03/19/2019 (8635) PAGE 2 Signed Report - XR FOOT 3+V [id number] 15:12:00 Name: CHELSEY MUÑIZ [facility] : 1955 Age/S: 63 / F [id number] [place] [address] Unit #: [id number] Loc: [place] [address] Phys: Feliz Man MD Acct: [id number] Dis Date: Status: REG ER PHONE #: [phone] Exam Date: 03/19/2019 1440 FAX #: Reason: fall EXAMS: CPT: [id number] XR FOOT 3+[place] [address] Fluoro Time: DAP (Gy m2): Air Kerma (mGy): - XR FOOT 3+V RT, - XR ANKLE 3+V RT CLINICAL INFORMATION: fall COMPARISONS: None available. FINDINGS: AP, lateral, and oblique images of the right foot and ankle were submitted. There is a nondisplaced fracture through the mid diaphysis of the 5th metatarsal. Mild soft tissue swelling is noted. The remaining bones of the foot and ankle are intact. The ankle mortise is normal. IMPRESSION: Nondisplaced fracture through the mid diaphysis of the 5th metatarsal. Location: A1 at 1512 Reported and signed by: Jose Lamas M.D. CC: Feliz Man MD; Jing Day NP PAGE 1 Signed Report Name: CHELSEY MUÑIZ [facility] : 1955 Age/S: 63 / F [address] [address] Unit #: [id number] Loc: [place] [address] Phys: Feliz Man MD Acct: [id number] Dis Date: Status: REG ER PHONE #: [phone] Exam Date: 03/19/2019 9674 FAX #: Reason: fall EXAMS: CPT: [id number] XR FOOT 3+V [place] [address] Fluoro Time: DAP (Gy m2): Air Kerma (mGy): <Continued> Technologist: VIDYA DOMINGUEZ RT(R)(CT)(MR) Trnscb Date/Time: 03/19/2019 (824) [email or web address] Orig Print D/T: S: 03/19/2019 (4399) PAGE 2 Signed Report TROPONIN I [id number] 15:00:00* Test Item Value Reference Range Comments TROPONIN I RAPID (test code=TROPIRAP) 0.00 ng/mL 0.00-0.08 - The use of serial sampling and testing protocol is a recommended practice- An elevated troponin level alone is often not sufficient for diagnosis of myocardial infarction. LACTIC ACID [id number] 15:00:00* Test Item Value Reference Range Comments LACTIC ACID POC (test code=LACTP) 2.66 MMOL/L 0.90-1.70 CBC W/AUTO [id number] 14:57:00* Test Item Value Reference Range Comments WHITE BLOOD CELL (test code=WBC) 10.0 K/mm3 3.5-11.0 RED BLOOD CELL (test code=RBC) 4.81 M/mm3 4.70-6.10 HEMOGLOBIN (test code=HGB) 14.2 G/DL 10.4-14.9 HEMATOCRIT (test code=HCT) 41.3 % 31.5-44.1 MEAN CELL VOLUME (test code=MCV) 85.9 Fl 84.5-98.6 MEAN CELL HGB (test code=MCH) 29.5 pg 27.0-34.2 MEAN CELL HGB CONCETRATION (test code=MCHC) 34.4 G/DL 31.5-34.0 RED CELL DISTRIBUTION WIDTH (test code=RDW) 13.7 SD 11.5-14.5 PLATELET COUNT (test code=PLT) 276.0 K/mm3 150-450 MEAN PLATELET VOLUME (test code=MPV) 8.80 fL 7.0-10.5 NEUTROPHIL % (test code=NT%) 81.7 % 40-76 LYMPHOCYTE % (test code=LY%) 10.3 % 20.5-51.1 MONOCYTE % (test code=MO%) 7.1 % 1.7-9.3 EOSINOPHIL % (test code=EO%) 0.5 % 0.0-6.0 BASOPHIL % (test code=BA%) 0.4 % 0.0-2.0 NEUTROPHIL # (test code=NT#) 8.19 K/mm3 1.8-7.6 LYMPHOCYTE # (test code=LY#) 1.0 K/mm3 0.6-3.2 MONOCYTE # (test code=MO#) 0.7 K/mm3 0.3-1.1 EOSINOPHIL # (test code=EO#) 0.1 K/mm3 0.0-0.4 BASOPHIL # (test code=BA#) 0.0 K/mm3 0.0-0.1 MANUAL DIFF REQUIRED (test code=MDIFF) NO DIFF/SCN CRITERIA BASIC METABOLIC [id number] 05:01:00* Test Item Value Reference Range Comments SODIUM (test code=NA) 137 mmol/L 134-147 POTASSIUM (test code=K) 3.7 mmol/L 3.4-5.0 CHLORIDE (test code=CL) 106 mmol/L 100-108 CARBON DIOXIDE (test code=CO2) 25 mmol/L 21-32 ANION GAP (test code=GAP) 6.0 GAP calc 4.0-15.0 GLUCOSE (test code=GLU) 90 MG/DL 70-110 BLOOD UREA NITROGEN (test code=BUN) 12 MG/DL 7-18 GLOMERULAR FILTRATION RATE (test code=GFR) >=60 max estimate estGFR >60 CREATININE (test code=CREAT) 0.9 MG/DL 0.6-1.0 CALCIUM (test code=CA) 8.7 MG/DL 8.5-10.1 [id number] 05:01:00* Test Item Value Reference Range Comments PHOSPHOROUS (test code=PHOS) 4.0 MG/DL 2.5-4.9 [id number] 05:01:00* Test Item Value Reference Range Comments MAGNESIUM (test code=MAG) 2.4 MG/DL 1.8-2.4 CBC W/AUTO [id number] 04:40:00* Test Item Value Reference Range Comments WHITE BLOOD CELL (test code=WBC) 4.9 K/mm3 3.5-11.0 RED BLOOD CELL (test code=RBC) 4.46 M/mm3 4.70-6.10 HEMOGLOBIN (test code=HGB) 13.1 G/DL 10.4-14.9 HEMATOCRIT (test code=HCT) 38.4 % 31.5-44.1 MEAN CELL VOLUME (test code=MCV) 86.1 Fl 84.5-98.6 MEAN CELL HGB (test code=MCH) 29.4 pg 27.0-34.2 MEAN CELL HGB CONCETRATION (test code=MCHC) 34.1 G/DL 31.5-34.0 RED CELL DISTRIBUTION WIDTH (test code=RDW) 13.7 SD 11.5-14.5 PLATELET COUNT (test code=PLT) 204.0 K/mm3 150-450 MEAN PLATELET VOLUME (test code=MPV) 8.70 fL 7.0-10.5 NEUTROPHIL % (test code=NT%) 46.1 % 40-76 LYMPHOCYTE % (test code=LY%) 39.0 % 20.5-51.1 MONOCYTE % (test code=MO%) 10.2 % 1.7-9.3 EOSINOPHIL % (test code=EO%) 3.7 % 0.0-6.0 BASOPHIL % (test code=BA%) 1.0 % 0.0-2.0 NEUTROPHIL # (test code=NT#) 2.26 K/mm3 1.8-7.6 LYMPHOCYTE # (test code=LY#) 1.9 K/mm3 0.6-3.2 MONOCYTE # (test code=MO#) 0.5 K/mm3 0.3-1.1 EOSINOPHIL # (test code=EO#) 0.2 K/mm3 0.0-0.4 BASOPHIL # (test code=BA#) 0.1 K/mm3 0.0-0.1 MANUAL DIFF REQUIRED (test code=MDIFF) NO DIFF/SCN CRITERIA CBC W/AUTO [id number] 05:16:00* Test Item Value Reference Range Comments WHITE BLOOD CELL (test code=WBC) 4.5 K/mm3 3.5-11.0 RED BLOOD CELL (test code=RBC) 4.24 M/mm3 4.70-6.10 HEMOGLOBIN (test code=HGB) 12.7 G/DL 10.4-14.9 HEMATOCRIT (test code=HCT) 36.7 % 31.5-44.1 MEAN CELL VOLUME (test code=MCV) 86.6 Fl 84.5-98.6 MEAN CELL HGB (test code=MCH) 30.0 pg 27.0-34.2 MEAN CELL HGB CONCETRATION (test code=MCHC) 34.6 G/DL 31.5-34.0 RED CELL DISTRIBUTION WIDTH (test code=RDW) 13.5 SD 11.5-14.5 PLATELET COUNT (test code=PLT) 219.0 K/mm3 150-450 MEAN PLATELET VOLUME (test code=MPV) 8.90 fL 7.0-10.5 NEUTROPHIL % (test code=NT%) 42.3 % 40-76 LYMPHOCYTE % (test code=LY%) 44.1 % 20.5-51.1 MONOCYTE % (test code=MO%) 9.0 % 1.7-9.3 EOSINOPHIL % (test code=EO%) 3.7 % 0.0-6.0 BASOPHIL % (test code=BA%) 0.9 % 0.0-2.0 NEUTROPHIL # (test code=NT#) 1.92 K/mm3 1.8-7.6 LYMPHOCYTE # (test code=LY#) 2.0 K/mm3 0.6-3.2 MONOCYTE # (test code=MO#) 0.4 K/mm3 0.3-1.1 EOSINOPHIL # (test code=EO#) 0.2 K/mm3 0.0-0.4 BASOPHIL # (test code=BA#) 0.0 K/mm3 0.0-0.1 MANUAL DIFF REQUIRED (test code=MDIFF) NO DIFF/SCN CRITERIA BASIC METABOLIC [id number] 05:16:00* Test Item Value Reference Range Comments SODIUM (test code=NA) 139 mmol/L 134-147 POTASSIUM (test code=K) 3.8 mmol/L 3.4-5.0 CHLORIDE (test code=CL) 107 mmol/L 100-108 CARBON DIOXIDE (test code=CO2) 27 mmol/L 21-32 ANION GAP (test code=GAP) 5.0 GAP calc 4.0-15.0 GLUCOSE (test code=GLU) 91 MG/DL 70-110 BLOOD UREA NITROGEN (test code=BUN) 11 MG/DL 7-18 GLOMERULAR FILTRATION RATE (test code=GFR) >=60 max estimate estGFR >60 CREATININE (test code=CREAT) 0.9 MG/DL 0.6-1.0 CALCIUM (test code=CA) 9.2 MG/DL 8.5-10.1 [id number] 05:16:00* Test Item Value Reference Range Comments PHOSPHOROUS (test code=PHOS) 4.1 MG/DL 2.5-4.9 [id number] 05:16:00* Test Item Value Reference Range Comments MAGNESIUM (test code=MAG) 2.4 MG/DL 1.8-2.4 BASIC METABOLIC [id number] 05:22:00* Test Item Value Reference Range Comments SODIUM (test code=NA) 140 mmol/L 134-147 POTASSIUM (test code=K) 3.6 mmol/L 3.4-5.0 CHLORIDE (test code=CL) 107 mmol/L 100-108 CARBON DIOXIDE (test code=CO2) 27 mmol/L 21-32 ANION GAP (test code=GAP) 6.0 GAP calc 4.0-15.0 GLUCOSE (test code=GLU) 98 MG/DL 70-110 BLOOD UREA NITROGEN (test code=BUN) 12 MG/DL 7-18 GLOMERULAR FILTRATION RATE (test code=GFR) >=60 max estimate estGFR >60 CREATININE (test code=CREAT) 0.8 MG/DL 0.6-1.0 CALCIUM (test code=CA) 8.7 MG/DL 8.5-10.1 [id number] 05:22:00* Test Item Value Reference Range Comments PHOSPHOROUS (test code=PHOS) 4.2 MG/DL 2.5-4.9 [id number] 05:22:00* Test Item Value Reference Range Comments MAGNESIUM (test code=MAG) 2.3 MG/DL 1.8-2.4 CBC W/AUTO [id number] 05:16:00* Test Item Value Reference Range Comments WHITE BLOOD CELL (test code=WBC) 4.7 K/mm3 3.5-11.0 RED BLOOD CELL (test code=RBC) 4.17 M/mm3 4.70-6.10 HEMOGLOBIN (test code=HGB) 12.5 G/DL 10.4-14.9 HEMATOCRIT (test code=HCT) 36.0 % 31.5-44.1 MEAN CELL VOLUME (test code=MCV) 86.3 Fl 84.5-98.6 MEAN CELL HGB (test code=MCH) 30.0 pg 27.0-34.2 MEAN CELL HGB CONCETRATION (test code=MCHC) 34.7 G/DL 31.5-34.0 RED CELL DISTRIBUTION WIDTH (test code=RDW) 13.4 SD 11.5-14.5 PLATELET COUNT (test code=PLT) 221.0 K/mm3 150-450 MEAN PLATELET VOLUME (test code=MPV) 9.00 fL 7.0-10.5 NEUTROPHIL % (test code=NT%) 48.5 % 40-76 LYMPHOCYTE % (test code=LY%) 38.6 % 20.5-51.1 MONOCYTE % (test code=MO%) 8.9 % 1.7-9.3 EOSINOPHIL % (test code=EO%) 3.2 % 0.0-6.0 BASOPHIL % (test code=BA%) 0.8 % 0.0-2.0 NEUTROPHIL # (test code=NT#) 2.28 K/mm3 1.8-7.6 LYMPHOCYTE # (test code=LY#) 1.8 K/mm3 0.6-3.2 MONOCYTE # (test code=MO#) 0.4 K/mm3 0.3-1.1 EOSINOPHIL # (test code=EO#) 0.2 K/mm3 0.0-0.4 BASOPHIL # (test code=BA#) 0.0 K/mm3 0.0-0.1 MANUAL DIFF REQUIRED (test code=MDIFF) NO DIFF/SCN CRITERIA - DUP EXTRACRANIAL [id number] 20:03:00 Name: CHELSEY MUÑIZ [facility] : 1955 Age/S: 63 / F [address] [facility] Unit #: [id number] Loc: [place] [address] Phys: Nancy Peterson MD Acct: [id number] Dis Date: Status: ADM IN PHONE #: [phone] Exam Date: 12/17/20181918 FAX #: Reason: syncope in hospital EXAMS: CPT: [id number] DUP EXTRACRANIAL BASIM 03257 Exam:Bilateral carotid duplex ultrasound Location: B2 Clinical Indication:63-year-old with syncope Comparison:None Findings:Duplex sonographic evaluation of the bilateral carotid bifurcations and vertebral arteries was performed, including grayscale, color-flow, and spectral waveform analysis. On the right, there is mild atherosclerotic plaque of the carotid bifurcation. There is a maximum ICA flow velocity of 65 cm/s and in ICA/CCA ratio of 1.1. On the left, there is mild plaque of the carotid bifurcation. The maximum ICA flow velocity is 67 cm/s and the ICA/CCA ratio is 0.9. There is antegrade flow within the bilateral vertebral arteries. Impression: Mild plaque of the carotid bifurcations with less than 50% stenosis of the optimal internal carotid arteries by velocity criteria. Electronically Signed by Zeinab Elias on at 2003 Reported and signed by: Leroy Elias M.D. CC: Bishnu Escalante MD; Nancy Peterson MD Technologist: Jesenia Troy Trnscb Date/Time: 12/17/2018 (2002) [id number] PAGE 1 Signed Report Name: MARY KAYJimmie LIUZAIN RUCKER [facility] : 1955 e/S: 63 / [facility] Unit #: [id number] Loc: [place] [address] Phys: Nancy Peterson MD Acct: [id number] Dis Date: Status: ADM IN PHONE #: [phone] Exam Date: 12/17/20181918 FAX #: Reason: syncope in hospital EXAMS: CPT: [id number] DUP EXTRACRANIAL BASIM 99138 <Continued> Orig Print D/T: S: 12/17/2018 (2005) Probe: PAGE 2 Signed Report BASIC METABOLIC [id number] 16:21:00* Test Item Value Reference Range Comments SODIUM (test code=NA) 138 mmol/L 134-147 POTASSIUM (test code=K) 3.9 mmol/L 3.4-5.0 CHLORIDE (test code=CL) 105 mmol/L 100-108 CARBON DIOXIDE (test code=CO2) 30 mmol/L 21-32 ANION GAP (test code=GAP) 3.0 GAP calc 4.0-15.0 GLUCOSE (test code=GLU) 81 MG/DL 70-110 BLOOD UREA NITROGEN (test code=BUN) 14 MG/DL 7-18 GLOMERULAR FILTRATION RATE (test code=GFR) 60 estGFR >60 CREATININE (test code=CREAT) 1.0 MG/DL 0.6-1.0 CALCIUM (test code=CA) 8.8 MG/DL 8.5-10.1 - CT HEAD/BRAIN W/O [id number] 15:02:00 Name: CHELSEY MUÑIZ [facility] : 1955 Age/S: 63 / F [address] [address] Unit #: [id number] Loc: [place] [address] Phys: Nancy Peterson MD Acct: [id number] Dis Date: Status: ADM IN PHONE #: [phone] Exam Date: 12/17/2018 1449 FAX #: Reason: fall in the hospital bathroom EXAMS: CPT: [id number] CT HEAD/BRAIN W/O CONT [address] HEAD WITHOUT CONTRAST HISTORY: fall in the hospital bathroom TECHNIQUE: Axial CT images from the skull base to the vertex without intravenous contrast. Coronal and sagittal reformatted images were created from the data set. One or more of the following dose reduction techniques were used: Automated exposure control, adjustment of the mA and/or kV according to patient size, and/or iterative reconstruction. COMPARISON: None FINDINGS: No abnormal brain parenchymal density. No evidence of acute infarction, intracranial hemorrhage, mass or mass effect, or abnormal extra-axial fluid collection. The ventricles are normal in size, shape and position. The density in the larger dural sinuses is grossly normal. The osseous structures and orbits have no significant abnormalities. The visualized paranasal sinuses and mastoid air cells are predominantly clear. IMPRESSION: No acute intracranial abnormality. at 1502 Reported and signed by: Dallas Mann M.D. CC: Bishnu Escalante MD; Nancy Peterson MD Technologist:Diane Wong, RT(R) CTDI: DLP: Trnscb Date/Time: 12/17/2018 (0184) [email or web address] Orig Print D/T: S: 12/17/2018 (6476) PAGE 1 Signed Report - XR SHOULDER 2+V [id number] 13:09:00 Name: CHELSEY MUÑIZ [facility] : 1955 Age/S: 63 / F [address] [address] Unit #: [id number] Loc: [place] [address] Phys: Nancy Peterson MD Acct: [id number] Dis Date: Status: ADM IN PHONE #: [phone] Exam Date: 12/17/2018 1256 FAX #: Reason: fall in the hospital bathroom EXAMS: CPT: [id number] XR SHOULDER 2+[place] [address] Fluoro Time: DAP (Gy m2): Air Kerma (mGy): EXAM: - XR SHOULDER 2+V LT HISTORY: Fall Location code:C3 COMPARISON: None available time of interpretation. FINDINGS: Internal and external rotated AP views of the left shoulder with scapular Y view is provided. Plate and screw fixation of the left humerus is seen. The hardware appears intact and fully engaged. There is no acute fracture or malalignment. The humeral head is located. IMPRESSION: No acute osseous abnormality. at 1309 Reported and signed by: Tony Kramer MD CC: Bishnu Escalante MD; Nancy Peterson MD PAGE 1 Signed Report Name: CHELSEY MUÑIZ [facility] : 1955 Age/S: 63 / F [address] [address] Unit #: [id number] Loc: [place] [address] Phys: Nancy Peterson MD Acct: [id number] Dis Date: Status: ADM IN PHONE #: [phone] Exam Date: 12/17/2018 1256 FAX #: Reason: fall in the hospital bathroom EXAMS: CPT: [id number] XR SHOULDER 2+[place] [address] Fluoro Time: DAP (Gy m2): Air Kerma (mGy): <Continued> Technologist: Diane Wong, RT(R) Trnscb Date/Time: 12/17/2018 (1924) [email or web address] Orig Print D/T: S: 12/17/2018 (8879) PAGE 2 Signed Report CBC W/AUTO [id number] 09:47:00* Test Item Value Reference Range Comments WHITE BLOOD CELL (test code=WBC) 4.6 K/mm3 3.5-11.0 RED BLOOD CELL (test code=RBC) 4.51 M/mm3 4.70-6.10 HEMOGLOBIN (test code=HGB) 13.3 G/DL 10.4-14.9 HEMATOCRIT (test code=HCT) 39.0 % 31.5-44.1 MEAN CELL VOLUME (test code=MCV) 86.5 Fl 84.5-98.6 MEAN CELL HGB (test code=MCH) 29.5 pg 27.0-34.2 MEAN CELL HGB CONCETRATION (test code=MCHC) 34.1 G/DL 31.5-34.0 RED CELL DISTRIBUTION WIDTH (test code=RDW) 13.9 SD 11.5-14.5 PLATELET COUNT (test code=PLT) 233.0 K/mm3 150-450 MEAN PLATELET VOLUME (test code=MPV) 9.00 fL 7.0-10.5 NEUTROPHIL % (test code=NT%) 48.7 % 40-76 LYMPHOCYTE % (test code=LY%) 38.4 % 20.5-51.1 MONOCYTE % (test code=MO%) 9.7 % 1.7-9.3 EOSINOPHIL % (test code=EO%) 1.9 % 0.0-6.0 BASOPHIL % (test code=BA%) 1.3 % 0.0-2.0 NEUTROPHIL # (test code=NT#) 2.26 K/mm3 1.8-7.6 LYMPHOCYTE # (test code=LY#) 1.8 K/mm3 0.6-3.2 MONOCYTE # (test code=MO#) 0.5 K/mm3 0.3-1.1 EOSINOPHIL # (test code=EO#) 0.1 K/mm3 0.0-0.4 BASOPHIL # (test code=BA#) 0.1 K/mm3 0.0-0.1 MANUAL DIFF REQUIRED (test code=MDIFF) NO DIFF/SCN CRITERIA - MRA HEAD W/O [id number] 16:43:00 FAX: Luis Alfredo Ramirez [phone] Camps: PM St: ADM FAX: Bishnu Escalante MD [phone] Name: CHELSEY MUÑIZ [facility] : 1955 Age/S: 63/F [address] [facility] Unit #: [id number] Loc: [address] [place] [address] Phys: Luis Alfredo Nguyen MD Acct: [id number] Dis Date: Status: ADM IN PHONE #: [phone] Exam Date: 12/16/2018 1607 FAX #: Reason: stroke, r/o aneurysm EXAMS: CPT: [id number] MRA HEAD W/O CONT 35325 R16 EXAM: MRA HEAD WITHOUT CONTRAST HISTORY: stroke, r/o aneurysm TECHNIQUE: 3-D gsfk-er-vmterd MRA images of the [place] were obtained. COMPARISON: No ne FINDINGS: There is normal flow-related signal in the larger intracranial arteries. No large branch artery occlusion, defin ite significant arterial stenosis, or saccular aneurysm is present. Anterior and bilateral posterior communicating arteries are present. IMPRESSION: Normal noncontrast MRA of the head. at 1643 Reported and signed by: Dallas Mann M.D. CC: Luis Alfredo Nguyen MD; Bishnu Escalante MD Technologist: Dank blevins, RT(R)(CT)(MRI) Transcribed Date/Time/By: 019 (4571) :[email or web address] Orig Print D/T: S: 12/16/2018 (5621) PAGE 1 Signed Report BASIC METABOLIC [id number] 04:37:00* Test Item Value Reference Range Comments SODIUM (test code=NA) 142 mmol/L 134-147 POTASSIUM (test code=K) 4.1 mmol/L 3.4-5.0 CHLORIDE (test code=CL) 112 mmol/L 100-108 CARBON DIOXIDE (test code=CO2) 23 mmol/L 21-32 ANION GAP (test code=GAP) 7.0 GAP calc 4.0-15.0 GLUCOSE (test code=GLU) 87 MG/DL 70-110 BLOOD UREA NITROGEN (test code=BUN) 17 MG/DL 7-18 GLOMERULAR FILTRATION RATE (test code=GFR) >=60 max estimate estGFR >60 CREATININE (test code=CREAT) 0.8 MG/DL 0.6-1.0 CALCIUM (test code=CA) 8.8 MG/DL 8.5-10.1 CBC W/AUTO [id number] 04:29:00* Test Item Value Reference Range Comments WHITE BLOOD CELL (test code=WBC) 5.9 K/mm3 3.5-11.0 RED BLOOD CELL (test code=RBC) 4.16 M/mm3 4.70-6.10 HEMOGLOBIN (test code=HGB) 12.4 G/DL 10.4-14.9 HEMATOCRIT (test code=HCT) 36.4 % 31.5-44.1 MEAN CELL VOLUME (test code=MCV) 87.5 Fl 84.5-98.6 MEAN CELL HGB (test code=MCH) 29.8 pg 27.0-34.2 MEAN CELL HGB CONCETRATION (test code=MCHC) 34.1 G/DL 31.5-34.0 RED CELL DISTRIBUTION WIDTH (test code=RDW) 14.1 SD 11.5-14.5 PLATELET COUNT (test code=PLT) 202.0 K/mm3 150-450 MEAN PLATELET VOLUME (test code=MPV) 9.20 fL 7.0-10.5 NEUTROPHIL % (test code=NT%) 51.1 % 40-76 LYMPHOCYTE % (test code=LY%) 38.8 % 20.5-51.1 MONOCYTE % (test code=MO%) 7.9 % 1.7-9.3 EOSINOPHIL % (test code=EO%) 1.2 % 0.0-6.0 BASOPHIL % (test code=BA%) 1.0 % 0.0-2.0 NEUTROPHIL # (test code=NT#) 3.03 K/mm3 1.8-7.6 LYMPHOCYTE # (test code=LY#) 2.3 K/mm3 0.6-3.2 MONOCYTE # (test code=MO#) 0.5 K/mm3 0.3-1.1 EOSINOPHIL # (test code=EO#) 0.1 K/mm3 0.0-0.4 BASOPHIL # (test code=BA#) 0.1 K/mm3 0.0-0.1 MANUAL DIFF REQUIRED (test code=MDIFF) NO DIFF/SCN CRITERIA - MRI BRAIN W/O [id number] 14:59:00 FAX: Bishnu Escalante MD [phone] Camps: PM St: ADM FAX: Saumya Champion [phone] Name: CHELSEY MUÑIZU [facility] : 1955 Age/S: 63/F [address] [facility] Unit #: [id number] Loc: [address] [place] [address] Phys: Bishnu Escalante MD Acct: [id number] Dis Date: Status: ADM IN PHONE #: [phone] Exam Date: 12/15/2018 1456 FAX #: Reason: HEADACHE, DIZZINESS EXAMS: CPT: [id number] MRI BRAIN W/O CONTRAST 85710 Location: T 18 MRI brain, 12/15/18 COMPARISON EXAM : 12/14/[address] exam and MRI imaging of the brain of 05/19/10 TECHNIQUE: MRI examination of the brain without contrast done performed on a high field magnet. Multiplanar and multisequence technique performed. CLINICAL HISTORY: Headache and dizziness. FINDINGS: No positive mass-effect, midline shift, e xtra-axial collection, no intracranial hemorrhage seen. No acute territori al infarction is seen. There is no intra or extra-axial masses. Assessment of skull base unremarkable. Normal signal void in the basil ar artery and carotid siphons are seen. Ventricles and sulci are a ge appropriate. DWI was performed and is unremarkable. No abnormal restriction is seen. There is increasing microvascular changes. This in p articular seen in the dulce maria without restriction appear relatively chronic, right more so than left, without mass effect or associated hemorrhagic products. This would involve perforating branches arising from the basi lar artery. Chronic microvascular changes also identified in the supratent orium. This is evolved in particular the left frontal region to the 2010 e xam again without associated restriction of small to moderate degree. No skull base masses seen. There is relatively normal aeration of mastoid air cells. No sinus disease is seen IMPR ESSION: Increasing but relatively chronic microvascular changes in parti cular the dulce maria right greater than left on a moderate degree and also see n in the left frontal lobe to the 2010 MRI exam. No evolving space-occup julia processes or intracranial hemorrhage. No acute PAGE 1 Signed Report (CONTINUED) FAX: Bishnu Escalante MD [phone] Camps: PM St: ADM FAX: Saumya Champion --------- Name: CHELSEY MUÑIZ [facility] : 1955 Age/S: 63/F [address] [address] it #: [id number] Loc: [address] [place] [address] Phys: Bishnu Escalante MD Acct: [id number] Dis Date: Status: ADM IN P ARPAN #: [phone] Exam Date: 12/15/2018 1451 F AX #: Reason: HEADACHE, DIZZINESS EXAMS: CPT: [id number] MRI BRAIN W/O CONTRAST 71740 <Continued> restriction is seen or acute vascular insult at 3229 Reported and signed by: Cyn Jaime M.D. CC: Bishnu Escalante MD; Saumya BEGUM Technologist: RT Casi(R)(MR) Transcribed Date/Time/By: 12/15/2018 (0283) :[email or web address] Orig Print D/T: S: 12/15/2018 (2161) PAGE 2 Signed Report GLYCOSYLATED HEMOGLOBIN [id number] 13:03:00* Test Item Value Reference Range Comments GLYCOSYLATED HEMOGLOBIN (HA1C) (test code=GLYHGB) 5.6 % A1C 4.2-6.3 ESTIMATED AVERAGE GLUCOSE (test code=EAG) 114 MG/DLest BASIC METABOLIC [id number] 12:45:00* Test Item Value Reference Range Comments SODIUM (test code=NA) 138 mmol/L 134-147 POTASSIUM (test code=K) 4.1 mmol/L 3.4-5.0 CHLORIDE (test code=CL) 109 mmol/L 100-108 CARBON DIOXIDE (test code=CO2) 26 mmol/L 21-32 ANION GAP (test code=GAP) 3.0 GAP calc 4.0-15.0 GLUCOSE (test code=GLU) 97 MG/DL 70-110 BLOOD UREA NITROGEN (test code=BUN) 16 MG/DL 7-18 GLOMERULAR FILTRATION RATE (test code=GFR) >=60 max estimate estGFR >60 CREATININE (test code=CREAT) 0.9 MG/DL 0.6-1.0 CALCIUM (test code=CA) 8.9 MG/DL 8.5-10.1 [id number] 12:45:00* Test Item Value Reference Range Comments PHOSPHOROUS (test code=PHOS) 3.5 MG/DL 2.5-4.9 RULE OUT ME [id number] 12:45:00* Test Item Value Reference Range Comments CREATINE KINASE (CK) (test code=CK) 41 Unit/L 26-192 TROPONIN-I (test code=TROPI) < 0.015 NG/ML 0.000-0.045 Negative: </=0.045 Positive: >/=0.046 Correlation with serial results, other cardiac markers, and clinical findings is necessary to determine the clinical significance of this result. Quantitative results using different methodologies should not be compared to one another as numerical results may varyby method. [id number] 12:45:00* Test Item Value Reference Range Comments MAGNESIUM (test code=MAG) 2.1 MG/DL 1.8-2.4 GLYCOSYLATED HEMOGLOBIN [id number] 02:43:00* Test Item Value Reference Range Comments GLYCOSYLATED HEMOGLOBIN (HA1C) (test code=GLYHGB) 5.8 % A1C 4.2-6.3 ESTIMATED AVERAGE GLUCOSE (test code=EAG) 120 MG/DLest RULE OUT ME [id number] 02:41:00* Test Item Value Reference Range Comments CREATINE KINASE (CK) (test code=CK) 117 Unit/L 26-192 TROPONIN-I (test code=TROPI) < 0.015 NG/ML 0.000-0.045 Negative: </=0.045 Positive: >/=0.046 Correlation with serial results, other cardiac markers, and clinical findings is necessary to determine the clinical significance of this result. Quantitative results using different methodologies should not be compared to one another as numerical results may varyby method. BASIC METABOLIC [id number] 02:40:00* Test Item Value Reference Range Comments SODIUM (test code=NA) 132 mmol/L 134-147 POTASSIUM (test code=K) 5.3 mmol/L 3.4-5.0 CHLORIDE (test code=CL) 107 mmol/L 100-108 CARBON DIOXIDE (test code=CO2) 17 mmol/L 21-32 ANION GAP (test code=GAP) 8.0 GAP calc 4.0-15.0 GLUCOSE (test code=GLU) 110 MG/DL 70-110 BLOOD UREA NITROGEN (test code=BUN) 11 MG/DL 7-18 GLOMERULAR FILTRATION RATE (test code=GFR) >=60 max estimate estGFR >60 CREATININE (test code=CREAT) 0.7 MG/DL 0.6-1.0 CALCIUM (test code=CA) 8.8 MG/DL 8.5-10.1 LIPID PROFILE (CORONARY RISK)2018-12-15 02:40:00* Test Item Value Reference Range Comments TRIGLYCERIDES (test code=TRIG) 56 MG/DL 0-150 CHOLESTEROL (test code=CHOL) 157 MG/DL 133-200 CHOLESTEROL/HDL RATIO (test code=CHOLHDL) 2.62 RATIO >0 HDL CHOLESTEROL (test code=HDL) 60 MG/DL 40-59 NON-HDL CHOLESTEROL (test code=NHDL) 97 mg/dL <130 LIPOPROTEIN LDL (test code=LDL) 93 MG/DL 0-129 LDL/HDL (test code=LDL/HDL) 1.55 Ratio 1.48-3.22 Avg CBC W/AUTO [id number] 02:21:00* Test Item Value Reference Range Comments WHITE BLOOD CELL (test code=WBC) 7.0 K/mm3 3.5-11.0 RED BLOOD CELL (test code=RBC) 4.72 M/mm3 4.70-6.10 HEMOGLOBIN (test code=HGB) 13.9 G/DL 10.4-14.9 HEMATOCRIT (test code=HCT) 40.6 % 31.5-44.1 MEAN CELL VOLUME (test code=MCV) 86.0 Fl 84.5-98.6 MEAN CELL HGB (test code=MCH) 29.4 pg 27.0-34.2 MEAN CELL HGB CONCETRATION (test code=MCHC) 34.2 G/DL 31.5-34.0 RED CELL DISTRIBUTION WIDTH (test code=RDW) 13.9 SD 11.5-14.5 PLATELET COUNT (test code=PLT) 253.0 K/mm3 150-450 MEAN PLATELET VOLUME (test code=MPV) 9.10 fL 7.0-10.5 NEUTROPHIL % (test code=NT%) 82.4 % 40-76 LYMPHOCYTE % (test code=LY%) 14.9 % 20.5-51.1 MONOCYTE % (test code=MO%) 2.4 % 1.7-9.3 EOSINOPHIL % (test code=EO%) 0.0 % 0.0-6.0 BASOPHIL % (test code=BA%) 0.3 % 0.0-2.0 NEUTROPHIL # (test code=NT#) 5.76 K/mm3 1.8-7.6 LYMPHOCYTE # (test code=LY#) 1.0 K/mm3 0.6-3.2 MONOCYTE # (test code=MO#) 0.2 K/mm3 0.3-1.1 EOSINOPHIL # (test code=EO#) 0.0 K/mm3 0.0-0.4 BASOPHIL # (test code=BA#) 0.0 K/mm3 0.0-0.1 MANUAL DIFF REQUIRED (test code=MDIFF) NO DIFF/SCN CRITERIA - CTA CHEST FOR [id number] 14:45:00 Name: CHELSEY MUÑIZ [facility] : 1955 Age/S: 63 / F [address] [address] Unit #: [id number] Loc: [place] [address] Phys: Andrew Vela MD Acct: [id number] Dis Date: Status: REG ER PHONE #: [phone] Exam Date: 12/14/2018 1340 FAX #: Reason: CP/SOB elevated ddimer EXAMS: CPT: [id number] [place] [address] CTA Chest with contrast Location: B2 Clinical indication: 63-year-old with chest pain and dyspnea. Elevated d-dimer. Comparison: Abdomen CT May 17, 2017. Technique: Computed axial images were obtained from the thoracic inlet through the diaphragms along with the IV administration of 100 mL Isovue-370. 3D/MIP reconstructions of the central pulmonary arteries were created. Up to date CT equipment and radiation dose technique were utilized. Findings: There is adequate opacification of the pulmonary arteries. No pulmonary artery embolism. There is atherosclerotic calcification of the thoracic aorta and coronary arteries. Heart size is normal. No pericardial effusion. No mediastinal or axillary lymphadenopathy. Thyroid is unremarkable. No pneumothorax or pleural effusion. There is some mild streaky opacification within the dependent aspects of the lower lungs, most likely scar or atelectasis. No definite acute pneumonic infiltrate. No acute abnormality of the partially visualized upper abdominal viscera. No acute osseous abnormality of the chest. Impression: 1. No pulmonary artery embolism. 2. Mild subpleural scar or atelectasis within the dependent lungs, similar to prior exam. at 1445 Reported and signed by: Peter Elias M.D. PAGE 1 Signed Report (CONTINUED) Name: CHELSEY MUÑIZ : 1955 Age/S: 63 / F [address] [address] Unit #: [id number] Loc: [place] [address] Phys: Andrew Vela MD Acct: [id number] Dis Date: Status: REG ER PHONE #: [phone] Exam Date: 12/14/2018 1340 FAX #: Reason: CP/SOB elevated ddimer EXAMS: CPT: [id number] [place] [id number] <Continued> CC: Andrew Vela MD Technologist:Dank Avalos, RT(R)(CT)(MRI) CTDI: DLP: Trnscb Date/Time: 12/14/2018 (1445) [email or web address] Orig Print D/T: S: 12/14/2018 (0584) PAGE 2 Signed Report [id number] 13:23:00* Test Item Value Reference Range Comments D-DIMER (test code=DDIMER) 758 ng/mLFEU 215-500 TROPONIN I [id number] 12:53:00* Test Item Value Reference Range Comments TROPONIN I RAPID (test code=TROPIRAP) 0.01 ng/mL 0.00-0.08 - The use of serial sampling and testing protocol is a recommended practice- An elevated troponin level alone is often not sufficient for diagnosis of myocardial infarction. [id number] 12:38:00* Test Item Value Reference Range Comments POTASSIUM (test code=K) 4.1 mmol/L 3.4-5.0 PROTHROMBIN [id number] 12:08:00* Test Item Value Reference Range Comments PT PATIENT (test code=PTP) 11.8 SECONDS 9.3-12.9 INTERNATIONAL NORMAL RATIO (test code=INR) 1.03 INR Unit 0.8-1.2 THROMBOPLASTIN TIME [id number] 12:08:00* Test Item Value Reference Range Comments THROMBOPLASTIN TIME PARTIAL (test code=PTT) 19.1 SECONDS 26-35 CBC W/O [id number] 11:58:00* Test Item Value Reference Range Comments WHITE BLOOD CELL (test code=WBC) 8.6 K/mm3 3.5-11.0 RED BLOOD CELL (test code=RBC) 5.33 M/mm3 4.70-6.10 HEMOGLOBIN (test code=HGB) 15.4 G/DL 10.4-14.9 HEMATOCRIT (test code=HCT) 46.5 % 31.5-44.1 MEAN CELL VOLUME (test code=MCV) 87.2 Fl 84.5-98.6 MEAN CELL HGB (test code=MCH) 28.9 pg 27.0-34.2 MEAN CELL HGB CONCETRATION (test code=MCHC) 33.1 G/DL 31.5-34.0 RED CELL DISTRIBUTION WIDTH (test code=RDW) 13.9 SD 11.5-14.5 PLATELET COUNT (test code=PLT) 149.0 K/mm3 150-450 MEAN PLATELET VOLUME (test code=MPV) 10.40 fL 7.0-10.5 CHEMISTRY 8 [id number] 11:51:00* Test Item Value Reference Range Comments ISTAT-SODIUM (test code=NAP) mmol/L 135-146 ISTAT-POTASSIUM (test code=KP) mmol/L 3.5-4.9 ISTAT-CHLORIDE (test code=CLP) mmol/L 98-109 ISTAT-CARBON DIOXIDE (test code=ISTAT-CO2) mmol/L 24-29 ISTAT CALCIUM IONIZED (test code=ISTAT-MELANI) mmol/L 1.12-1.32 ISTAT-GLUCOSE (test code=GLUP) mg/dL 70-105 ISTAT-BUN (test code=BUNP) mg/dL 8-26 BEDSIDE CREATININE (test code=CREATBED) mg/dL 0.6-1.3 GLOMERULAR FILTRATION RATE POC (test code=GFRBED) 60 45-104 CHEMISTRY 8 [id number] 11:51:00* Test Item Value Reference Range Comments ISTAT-SODIUM (test code=NAP) 134 mmol/L 135-146 ISTAT-POTASSIUM (test code=KP) 5.2 mmol/L 3.5-4.9 ISTAT-CHLORIDE (test code=CLP) 100 mmol/L 98-109 ISTAT-CARBON DIOXIDE (test code=ISTAT-CO2) 23 mmol/L 24-29 ISTAT CALCIUM IONIZED (test code=ISTAT-MELANI) 1.13 mmol/L 1.12-1.32 ISTAT-GLUCOSE (test code=GLUP) 113 mg/dL 70-105 ISTAT-BUN (test code=BUNP) 11 mg/dL 8-26 BEDSIDE CREATININE (test code=CREATBED) 1.0 mg/dL 0.6-1.3 GLOMERULAR FILTRATION RATE POC (test code=GFRBED) 60 45-104 - CT HEAD/BRAIN W/O [id number] 11:33:00 Name: CHELSEY MUÑIZ [facility] : 1955 Age/S: 63 / F [id number] [address] Unit #: [id number] Loc: [place] [address] Phys: Andrew Vela MD Acct: [id number] Dis Date: Status: PRE ER PHONE #: [phone] Exam Date: 12/14/2018 112 FAX #: Reason: Code Stroke EXAMS: CPT: [id number] CT HEAD/BRAIN W/O CONT [id number] EXAMINATION: - CT HEAD/BRAIN W/O CONT. LOCATION: S17. HISTORY: Code Stroke. COMPARISON: MR brain 05/19/2010. TECHNIQUE: Routine CT of the head was performed without intravenous contrast as per protocol. One or more the following dose reduction techniques were used: Automated exposure control, adjustment of mA and/or kV according to patient size, and use of iterative reconstruction technique. FINDINGS: Brain Parenchyma: No hemorrhage or infarction. No mass effect or midline shift. Extra Axial Spaces: Unremarkable. Ventricular System: Unremarkable. Osseous Structures: Unremarkable. Visualized Paranasal Sinuses: Unremarkable. IMPRESSION: No acute intracranial abnormality nor hemorrhage. Findings discussed with MD Mirian at 12/14/2018 11:30 AM. FOR INTERNAL CODING PURPOSES ONLY RESULT CODE: CVRMD at 0123 Reported and signed by: Edna Banda M.D. PAGE 1 Signed Report (CONTINUED) Name: CHELSEY MUÑIZ [facility] : 1955 Age/S: 63 / F [id number] [address] Unit #: [id number] Loc: [place] [address] Phys: Hudson Vela MD Acct: [id number] Dis Date: Status: PRE ER PHONE #: Exam Date: 12/14/2018 1124 FAX #: Reason: Code Stroke EXAMS: CPT: [id number] CT HEAD/BRAIN W/O CONT 95080 <Continued> CC: Andrew Vela MD Technologist:Leonel Zendejas, RT(R)(CT) CTDI: DLP: Trnscb Date/Time: 12/14/2018 (1133) [email or web address] Orig Print D/T: S: 12/14/2018 (1136) PAGE 2 Signed Report
== END 2019-04-30 12:10 | disposition home or self-care (01) ==
LOC: ER 11:50
DX: K08.89 Other specified disorders of teeth and supporting structures (principal); Z87.19 Personal history of other diseases of the digestive system
CPT/HCPCS: 99282